=== PATIENT | male | born 1965 | race Caucasian/White ===

== ENCOUNTER 2023-11-07 12:24 | Emergency (ER) | payer OTHER ==
[~2023-11-07] VITALS: Ht 177.8 cm; Wt 81.0 kg
[2023-11-07 12:47] VITALS: O2SAT 99
[2023-11-07] MEDS: FLUORESCEIN SODIUM 1MG/STRIP LEFTEYE ONE (16:18)
[2023-11-07] MEDS: TETRACAINE 0.5% OPHTH DROPS 4ML LEFTEYE ONE (16:19)
[2023-11-07] MEDS ORDERED: ERYT1OIN6 LEFTEYE (16:25)
[2023-11-07 16:40] VITALS: BP 156/85; PULSE 71; RESP 18; TEMP 98.2
[2023-11-07] MEDS: ERYTHROMYCIN BASE 0.5% OPHTH OINT 3.5GM LEFTEYE ONE (16:42)
[2023-11-07] MEDS ORDERED: ERYTHROMYCIN BASE 0.5% OPHTH OINT 3.5GM LEFTEYE SCH (20:00)
== END 2023-11-07 16:47 | disposition home or self-care (01) ==
LOC: ER 12:24
DX: S05.8X2A Other injuries of left eye and orbit, initial encounter (principal); H10.32 Unspecified acute conjunctivitis, left eye; Z90.49 Acquired absence of other specified parts of digestive tract; Z98.890 Other specified postprocedural states; X58.XXXA Exposure to other specified factors, initial encounter; Y93.89 Activity, other specified; Y92.89 Other specified places as the place of occurrence of the external cause; Y99.8 Other external cause status
CPT/HCPCS: 99283